=== PATIENT | male | born 1985 | race Caucasian/White ===

== ENCOUNTER 2016-10-10 14:05 | Emergency (ER) | payer BC ==
[~2016-10-10] VITALS: Ht 185.4 cm; Wt 83.9 kg
[~2016-10-10 14:05] MED LIST: ALBU8.5H2 IH; BECL8.7A6 IH; DESO15CR28 TP; TRIA15OI2 TP; VALA500T PO
--- NOTE | 2016-10-10 14:05 | NUR ---
PT BIB SELF DOG BITE TO RLE ON SUNDAY. SCAB ON RLE NO REDNESS NO SWELLING. AWAITING MD ORDER.
--- NOTE | 2016-10-10 14:22 | NUR ---
DR MAGANA AT BEDSIDE FOR EVAL
--- NOTE | 2016-10-10 14:50 | NUR ---
Patient discharged to home in stable condition. Written and verbal after care instructions given. Patient verbalizes understanding of instruction.
[2016-10-10 14:51] VITALS: BP 145/83
== END 2016-10-10 14:52 | disposition home or self-care (01) ==
LOC: ER 14:07
DX: S81.851A Open bite, right lower leg, initial encounter (principal); F84.5 Asperger's syndrome; F90.9 Attention-deficit hyperactivity disorder, unspecified type; J45.909 Unspecified asthma, uncomplicated; Z88.0 Allergy status to penicillin; W54.0XXA Bitten by dog, initial encounter; Y92.89 Other specified places as the place of occurrence of the external cause; Y93.89 Activity, other specified; Y99.8 Other external cause status
CPT/HCPCS: 99283; A4606; Z7610